=== PATIENT | male | born 1990 | race Caucasian/White ===

== ENCOUNTER 2018-02-24 05:00 | Emergency (ER) | payer OTHER ==
[~2018-02-24] VITALS: Ht 172.7 cm; Wt 68.0 kg
[2018-02-24] MEDS ORDERED: IBUPROFEN 800MG TABLET PO ONE (07:00)
[2018-02-24 09:30] VITALS: BP 130/62
== END 2018-02-24 09:36 | disposition home or self-care (01) ==
LOC: ER 05:00
DX: S62.390A Other fracture of second metacarpal bone, right hand, initial encounter for closed fracture (principal); F17.200 Nicotine dependence, unspecified, uncomplicated; Z90.49 Acquired absence of other specified parts of digestive tract; W22.01XA Walked into wall, initial encounter; Y93.89 Activity, other specified; Y92.149 Unspecified place in prison as the place of occurrence of the external cause
CPT/HCPCS: 29125; 73130; 99284

== ENCOUNTER 2018-03-04 08:53 | Emergency (ER) | payer MEDICAID, OTHER ==
[~2018-03-04] VITALS: Ht 177.8 cm; Wt 80.0 kg
[2018-03-04 09:02] VITALS: BP 124/54
== END 2018-03-04 11:36 | disposition home or self-care (01) ==
LOC: ER 09:39
DX: S62.390A Other fracture of second metacarpal bone, right hand, initial encounter for closed fracture (principal); F17.200 Nicotine dependence, unspecified, uncomplicated; F12.10 Cannabis abuse, uncomplicated; X58.XXXA Exposure to other specified factors, initial encounter; Y93.89 Activity, other specified; Y92.89 Other specified places as the place of occurrence of the external cause; Y99.8 Other external cause status; Z98.890 Other specified postprocedural states
CPT/HCPCS: 99282